=== PATIENT | female | born 1960 | race African-American/Black ===

== ENCOUNTER 2022-05-03 22:07 | Emergency (ER) | payer OTHER ==
[~2022-05-03 22:07] MED LIST: BACITRACIN15 GM TOP; BENADRYL ITCH28.3 GM TOP; MEDROL 4MG DOSEP4 MG PO
[2022-05-03] MEDS ORDERED: MEDROL 4MG DOSEP4 MG PO (22:31)
== END 2022-05-03 22:56 | disposition home or self-care (01) ==
LOC: FER 22:07
DX: T78.40XA Allergy, unspecified, initial encounter (principal); F17.200 Nicotine dependence, unspecified, uncomplicated; Z28.311 Partially vaccinated for COVID-19
CPT/HCPCS: 96372; 99282; J1030; J1200